=== PATIENT | female | born 1980 | race Caucasian/White ===

== ENCOUNTER 2022-08-12 06:48 | Emergency (ER) | payer OTHER ==
[~2022-08-12] VITALS: Ht 160 cm; Wt 59.0 kg
--- NOTE | 2022-08-12 07:03 | NUR ---
TO ER BED 11. [id number] AND [employer] FOR MULTIPLE LACERATION ON RUE WITH BROKEN GLASS. PT IS IN [employer] CUSTODY. PT IS ALERT AND ORIENTED. RR EVEN AND NON LABORED. CONNECTED TO MONITOR.
--- NOTE | 2022-08-12 08:03 | NUR ---
provided w/ wound care. medically cleared. d/c to [facility] offier in stable condition.
[2022-08-12 08:04] VITALS: BP 136/87
== END 2022-08-12 08:05 | disposition home or self-care (01) ==
LOC: ER 06:51
DX: S51.011A Laceration without foreign body of right elbow, initial encounter (principal); W25.XXXA Contact with sharp glass, initial encounter; Y93.89 Activity, other specified; Y92.89 Other specified places as the place of occurrence of the external cause; Y99.8 Other external cause status